=== PATIENT | male | born 1940 | race Caucasian/White ===

== ENCOUNTER 2021-11-25 15:24 | Outpatient (CLI) | payer MEDICARE | END 2021-11-25 15:25 | disposition home or self-care (01) | LOC: BICRAD 15:24 | PROVIDERS: ATTEND Internal Medicine Cardiovascular Disease | DX: I48.91 Unspecified atrial fibrillation (principal) | CPT/HCPCS: 36415; 71046; 80053; 84443 ==

== ENCOUNTER 2022-06-29 09:34 | Outpatient (CLI) | payer OTHER | END 2022-06-29 09:35 | disposition home or self-care (01) | LOC: SCSMRI 09:34 | PROVIDERS: ATTEND Psychiatry & Neurology Neurology | DX: R26.0 Ataxic gait (principal); R90.82 White matter disease, unspecified | CPT/HCPCS: 70553; 82565 ==

== ENCOUNTER 2022-10-23 09:26 | Day surgery (SDC) | payer OTHER ==
[2022-10-23 10:48] LABS: #Eosinphils 0.1 thou/uL (0.0-0.7); #Lymphocytes 1.1 thou/uL (1.20-3.40); #Monocytes 0.7 thou/uL (0.11-0.59); #Neutrophils 6.4 thou/uL (1.40-6.50); %Basophils 0.5 % (0.0-1.0); %Eosinophils 1.1 % (0.0-10.0); %Lymphocytes 12.6 % (21.0-51.0); %Monocytes 8.8 % (0.0-10.0); Hemoglobin 13.5 g/dL (14.0-18.0); Mean Corpuscular Hemoglobin 30.9 pg (27.0-31.0); Mean Corpuscular Volume 93.6 fl (78.0-98.0); Mean Platelet Volume 8.3 fL (7.4-10.4); Platelet Count 198 10x3/uL (130-400); RBC Distribution Width 11.8 % (11.5-14.5); Red Blood Cell (RBC) Count 4.36 mill/uL (4.70-6.10); White Blood Cell (WBC) Count 8.3 10x3/uL (4.8-10.8)
[2022-10-23] MEDS ORDERED: Ondansetron PF 4 MG/2 ML Vial ONE (10:48)
[2022-10-23 10:59] LABS: INR-International Normal Ratio 1.5; PTT 38.3 sec (22.9-36.1); Prothrombin Time 18.6 sec (12.0-14.7)
[2022-10-23 11:08] LABS: ALT (SGPT) 13 U/L (8-55); AST (SGOT) 15 U/L (5-34); Alkaline Phosphatase 88 U/L (40-110); Anion Gap 15 mmol/L (10-20); BUN (Urea Nitrogen) 28 mg/dL (8.4-25.7); Calc. Creatinine Clearance 0 mL/min (70-130); Calcium 9.5 mg/dL (7.8-10.44); Carbon Dioxide 23 mmol/L (23-31); Chloride 108 mmol/L (98-107); Estimated GFR 45; Globulin 3.5 g/dL (2.4-3.5); Glucose 100 mg/dL (83-110); Potassium 4.1 mmol/L (3.5-5.1); Protein, Total 7.5 g/dL (5.8-8.1); Sodium 142 mmol/L (136-145)
[2022-10-23 11:30] LABS: CKMB 1.8 ng/mL (0-6.6)
[2022-10-23] MEDS ORDERED: FENTANYL 50 MCG/ML 1 ML VIAL ONE ×2 (12:35→13:33)
[2023-01-23] MEDS ORDERED: Succinylcholine Chloride 100 MG/5 ML SYRINGE FS ONE (12:40)
[2023-01-23] MEDS ORDERED: Ondansetron PF 4 MG/2 ML Vial ONE (12:40)
[2023-01-23] MEDS ORDERED: Phenylephrine 10 MG/ML VIAL ONE (12:40)
[2023-01-23] MEDS ORDERED: Lidocaine 1% PF 5 ML VIAL ONE (12:40)
[2023-01-23] MEDS ORDERED: PROPOFOL 200 MG/20 ML VIAL ONE (12:40)
== END 2022-10-23 14:45 | disposition home or self-care (01) ==
LOC: ERS 09:26 → SDC 12:01
PROVIDERS: ATTEND Internal Medicine
PROC: 0DC18ZZ Extirpation of Matter from Upper Esophagus, Via Natural or Artificial Opening Endoscopic (ICD-10-PCS; principal; 2022-10-23)
PROC: 0DB28ZX Excision of Middle Esophagus, Via Natural or Artificial Opening Endoscopic, Diagnostic (ICD-10-PCS; 2022-10-23)
PROC: 0DB78ZX Excision of Stomach, Pylorus, Via Natural or Artificial Opening Endoscopic, Diagnostic (ICD-10-PCS; 2022-10-23)
PROC: 0DB68ZX Excision of Stomach, Via Natural or Artificial Opening Endoscopic, Diagnostic (ICD-10-PCS; 2022-10-23)
DX: T18.128A Food in esophagus causing other injury, initial encounter (principal); K31.9 Disease of stomach and duodenum, unspecified; K21.00 Gastro-esophageal reflux disease with esophagitis, without bleeding; K29.80 Duodenitis without bleeding; I25.10 Atherosclerotic heart disease of native coronary artery without angina pectoris; I10 Essential (primary) hypertension; E78.5 Hyperlipidemia, unspecified; I48.91 Unspecified atrial fibrillation; Z87.891 Personal history of nicotine dependence; Z79.82 Long term (current) use of aspirin; Z79.01 Long term (current) use of anticoagulants; Z79.899 Other long term (current) drug therapy; X58.XXXA Exposure to other specified factors, initial encounter; Y93.89 Activity, other specified
CPT/HCPCS: 43239; 43247; 70360; 71045; 80053; 82553; 84484; 85025; 85610; 85730; 93005; 96374; 99285; J3010; 36415; 88305; 88312; 88313; 88342; J2370; J2405; J2704